=== PATIENT | female | born 1940 | race Caucasian/White ===

== ENCOUNTER 2021-07-15 10:28 | Inpatient (IN) ==
[2021-07-15 10:45] LABS: BORDETELLA PARAPERTUSSIS (PCR) NOT DETECTED (NOT DETECT); BORDETELLA PERTUSSIS (PCR) NOT DETECTED (NOT DETECT); CHLAMYDIA PNEUMONIAE (PCR) NOT DETECTED (NOT DETECT); CORONAVIRUS 229E (PCR) NOT DETECTED (NOT DETECT); CORONAVIRUS HKU1 (PCR) NOT DETECTED (NOT DETECT); CORONAVIRUS NL63 (PCR) NOT DETECTED (NOT DETECT); CORONAVIRUS OC43 (PCR) NOT DETECTED (NOT DETECT); HUMAN METAPNEUMOVIRUS (PCR) NOT DETECTED (NOT DETECT); HUMAN RHINOVIRUS/ENTEROV (PCR) NOT DETECTED (NOT DETECT); INFLUENZA B (PCR) NOT DETECTED (NOT DETECT); MYCOPLASMA PNEUMONIAE (PCR) NOT DETECTED (NOT DETECT); PARAINFLUENZA VIRUS 1 (PCR) NOT DETECTED (NOT DETECT); PARAINFLUENZA VIRUS 2 (PCR) NOT DETECTED (NOT DETECT); PARAINFLUENZA VIRUS 3 (PCR) NOT DETECTED (NOT DETECT); PARAINFLUENZA VIRUS 4 (PCR) NOT DETECTED (NOT DETECT); RESPIRATORY SYNCYTIAL V (PCR) NOT DETECTED (NOT DETECT); SARS_COV_2 (PCR) NOT DETECTED (NOT DETECT)
[2021-07-15 11:36] LABS: ADENOVIRUS (PCR) NOT DETECTED (NOT DETECT)
[2021-07-15 13:07] VITALS: BMI 24.0
[2021-07-15] MEDS ORDERED: NITROSTAT SL PRN (13:36)
[2021-07-15] MEDS ORDERED: ATROPINE SULFATE PFS IVP PRN (13:36)
[2021-07-15] MEDS ORDERED: TYLENOL PO PRN (13:36)
[2021-07-15 13:57] LABS: BASOPHILS % (AUTO) 0.4 % (0.0-3.0); EOSINOPHILS # (AUTO) 0.2 K/ul (0.0-0.7); EOSINOPHILS % (AUTO) 2.2 % (0.0-7.0); HEMATOCRIT 33.8 % (37.0-47.0); HEMOGLOBIN 11.9 g/dl (12.0-16.0); IMMATURE GRANULOCYTE % (AUTO) 0.3 % (0.0-5.0); LYMPHOCYTES # (AUTO) 2.2 K/uL (0.60-3.4); LYMPHOCYTES % (AUTO) 31.3 (10.0-50.0); MEAN CORPUSCULAR HEMOGLOBIN 33.6 pg (27.0-31.0); MEAN CORPUSCULAR HGB CONC 35.2 (31.8-35.4); MEAN CORPUSCULAR VOLUME 95.5 fl (81.0-99.0); MONOCYTES # (AUTO) 0.4 K/uL (0.4-2.0); MONOCYTES % (AUTO) 6.1 (0-10); NEUTROPHILS # (AUTO) 4.3 K/ul (2.0-6.9); NEUTROPHILS % (AUTO) 59.7 % (42.2-75.2); PLATELET COUNT 171 10^3/uL (140-440); RDW COEFFICIENT OF VARIATION 11.3 % (11.6-14.8); RED BLOOD COUNT 3.54 10^6/ul (4.20-5.40); WHITE BLOOD COUNT 7.16 K/ul (4.6-10.2)
[2021-07-15 14:13] LABS: BILIRUBIN,URINE Negative (NEGATIVE); CLARITY,URINE Clear (CLEAR); COLOR,URINE Yellow (YELLOW); GLUCOSE, URINE (UA) 1+ (NEGATIVE); KETONES,URINE Negative (NEGATIVE); LEUKOCYTE ESTERASE ,URINE 1+ (NEGATIVE); NITRITE,URINE Negative (NEGATIVE); PH,URINE 5.5 (5-9); PROTEIN,URINE Negative (NEGATIVE); URINE, BLOOD Negative (NEGATIVE); UROBILINOGEN,URINE 0.2 (0.2)
[2021-07-15 14:13] LABS: ALANINE AMINOTRANSFERASE 57.3 U/L (0-35); ALBUMIN 4.16 g/dL (3.5-5.0); ASPARTATE AMINO TRANSFERASE 57.5 U/L (14-36); BILIRUBIN,TOTAL 0.37 mg/dL (0.2-1.3); CALCIUM 8.67 mg/dL (8.4-10.2); CARBON DIOXIDE 26.3 mmol/L (22-30.0); CHLORIDE 94.9 mmol/L (98-107); CREATINE KINASE 85.4 U/L (30-135); CREATININE 1.06 mg/dL (0.60-1.30); GLUCOSE 303.6 mg/dL (74-106); POTASSIUM 3.48 mmol/L (3.5-5.1); SODIUM 132.7 mmol/L (134.5-145); TOTAL PROTEIN 7.26 g/dL (6.3-8.2)
[2021-07-15 14:25] LABS: TROPONIN I < 0.012 ng/ml (0.0000-0.120)
[2021-07-15 14:28] LABS: URINE WBC, MICROSCOPIC 20-30 (0-2)
[2021-07-15 14:29] LABS: BACTERIA,URINE 3+ (NOT PRESENT)
--- NOTE | 2021-07-15 15:24 | US ---
EXAM: Carotid duplex ultrasound. HISTORY: Dizziness and forgetfulness. COMPARISON: None. FINDINGS: Evaluation of the right and left carotid and vertebral arteries was performed using navarro scale, color doppler, and spectral doppler. Right cervical carotid: Mild atherosclerotic plaque in the right internal carotid artery. Peak systo lic velocity right ICA 62.5cm/s. Velocity right CCA 85.9cm/s. Velocity ratio right ICA:CCA 0.7. Left cervical carotid: Mild atherosclerotic plaque in the left internal carotid artery. Peak systoli c velocity left ICA 73.4cm/s. Velocity left CCA 62.4cm/s. Velocity ratio left ICA:CCA 1.2. Vertebral arteries: Normal, antegrade flow. IMPRESSION: Mild atherosclerosis. No evidence of significant carotid stenosis. Normal flow in the right and left vertebral arteries.
--- NOTE | 2021-07-15 15:54 | DI ---
EXAM: Frontal view of the chest. HISTORY: Shortness of breath. COMPARISON: None. FINDINGS: Calcific atherosclerosis of the aorta. Normal heart size. No acute consolidation. Scattered calcified granulomas. No visible effusion or pneumothorax. No acute osseous abnormality. IMPRESSION: 1. No acute abnormality. 2. Calcific atherosclerosis.
[2021-07-15] MEDS: ROCEPHIN 1 GM/50 ML D5W 1 GM/50 ML BAG IV SCH (16:07)
--- NOTE | 2021-07-15 16:10 | MRI ---
EXAM: MRI of the brain with without contrast HISTORY: Dementia TECHNIQUE: Multiplanar imaging of the brain was performed using T1, T2, inversion recovery, diffusio n, T2 gradient and postcontrast T1W sequences. Comparison none. FINDINGS: There is no restricted diffusion. The lateral ventricles and cortical sulci are mildly pr ominent secondary to cerebral atrophy.. The basal cisterns are patent. Normal flow voids are identi fied within the basal cisterns. The seventh and eighth cranial nerve complexes are normal. Normal f low signal is identified within the dural venous sinuses. Numerous T2 high signal foci are seen thro ughout the supratentorial white matter and within the martín. No abnormal enhancement is identified wi thin the brain on postcontrast images. The craniocervical junction and midline structures are normal. The soft tissues of the skull base an d nasopharynx appear normal. The paranasal sinuses and mastoid air cells are clear. The extracrania l soft tissues are normal. IMPRESSION: There is no acute cerebral infarction. At least moderate chronic small vessel ischemic changes seen throughout the supratentorial white daxa er and brainstem at the level of martín. Mild cerebral atrophy.
[2021-07-15] MEDS ORDERED: VANCOMYCIN 1 GRAM/200 ML PREMIX 1 GM/200 ML BAG IV SCH (21:00)
[2021-07-15] MEDS ORDERED: PRIMIDONE 50 MG PO SCH (21:00)
[2021-07-15] MEDS: DITROPAN PO SCH (21:04)
[2021-07-15] MEDS: MYSOLINE PO SCH (21:06)
[2021-07-15] MEDS: LANTUS SUBCUT SCH (21:07)
[2021-07-15 21:36] LABS: CREATINE KINASE 72.8 U/L (30-135)
[2021-07-15 21:50] LABS: TROPONIN I < 0.012 ng/ml (0.0000-0.120)
[2021-07-16] MEDS: PROTONIX PO SCH (05:31)
[2021-07-16 05:32] LABS: BASOPHILS % (AUTO) 0.4 % (0.0-3.0); EOSINOPHILS # (AUTO) 0.2 K/ul (0.0-0.7); EOSINOPHILS % (AUTO) 2.9 % (0.0-7.0); HEMATOCRIT 32.7 % (37.0-47.0); HEMOGLOBIN 11.3 g/dl (12.0-16.0); IMMATURE GRANULOCYTE % (AUTO) 0.3 % (0.0-5.0); LYMPHOCYTES # (AUTO) 2.3 K/uL (0.60-3.4); LYMPHOCYTES % (AUTO) 30.2 (10.0-50.0); MEAN CORPUSCULAR HEMOGLOBIN 33.1 pg (27.0-31.0); MEAN CORPUSCULAR HGB CONC 34.6 (31.8-35.4); MEAN CORPUSCULAR VOLUME 95.9 fl (81.0-99.0); MONOCYTES # (AUTO) 0.6 K/uL (0.4-2.0); MONOCYTES % (AUTO) 7.2 (0-10); NEUTROPHILS # (AUTO) 4.6 K/ul (2.0-6.9); PLATELET COUNT 168 10^3/uL (140-440); RDW COEFFICIENT OF VARIATION 11.4 % (11.6-14.8); RED BLOOD COUNT 3.41 10^6/ul (4.20-5.40); WHITE BLOOD COUNT 7.69 K/ul (4.6-10.2)
[2021-07-16 05:52] LABS: ALANINE AMINOTRANSFERASE 48.1 U/L (0-35); ALBUMIN 3.72 g/dL (3.5-5.0); ALKALINE PHOSPHATASE 96.6 U/L (53-141); ASPARTATE AMINO TRANSFERASE 44.2 U/L (14-36); BILIRUBIN,TOTAL 0.24 mg/dL (0.2-1.3); BLOOD UREA NITROGEN 20.1 mg/dL (7-17); CALCIUM 8.55 mg/dL (8.4-10.2); CARBON DIOXIDE 24.1 mmol/L (22-30.0); CHLORIDE 99.4 mmol/L (98-107); CREATININE 1.11 mg/dL (0.60-1.30); GLUCOSE 337.1 mg/dL (74-106); POTASSIUM 3.25 mmol/L (3.5-5.1); TOTAL PROTEIN 6.68 g/dL (6.3-8.2)
[2021-07-16] MEDS: ROCEPHIN 1 GM/50 ML D5W 1 GM/50 ML BAG IV SCH (08:07)
[2021-07-16] MEDS: MYSOLINE PO SCH ×3 (08:55→20:25)
[2021-07-16] MEDS ORDERED: MULTIVITAMIN MIN IRON FA VIT K 18 MG PO SCH (09:00)
[2021-07-16] MEDS ORDERED: NON-FORMULARY MEDICATION (Vitamin B Complex Capsule) PO SCH (09:00)
[2021-07-16] MEDS ORDERED: IRON PO SCH (09:00)
[2021-07-16] MEDS ORDERED: NON-FORMULARY MEDICATION (Ferrous Sulfate [Iron] 325 mg (65 mg iron) Tablet) PO SCH (09:00)
[2021-07-16] MEDS ORDERED: [UNRECOGNIZED DRUG - OTHER] PO SCH (09:00)
[2021-07-16] MEDS: BALANCED B-100 PO SCH (09:08)
[2021-07-16] MEDS: LIPITOR PO SCH (09:08)
[2021-07-16] MEDS: JANUVIA PO SCH (09:08)
[2021-07-16] MEDS: FERROUS SULFATE PO SCH (09:08)
[2021-07-16] MEDS: MULTIVITAMIN TABLET PO SCH (09:08)
[2021-07-16] MEDS: NON-FORMULARY MEDICATION (Calcium-Magnesium-Zinc Tablet) PO SCH (09:09)
[2021-07-16] MEDS: INDAPAMIDE 1.25 MG PO SCH (09:09)
[2021-07-16] MEDS: NON-FORMULARY MEDICATION (Vit C,E-Zn-Coppr-Lutein-Zeaxan [Preservision Areds-2] 250-90-40- PO SCH (09:10)
[2021-07-16] MEDS: LANTUS SUBCUT SCH ×2 (09:11→20:26)
[2021-07-16] MEDS: HUMULIN R SUBCUT PRN ×3 (11:10→20:25)
[2021-07-16] MEDS ORDERED: LANTUS SUBCUT ONE (12:01)
--- NOTE | 2021-07-16 14:19 | HP ---
DATE OF SERVICE: 07/15/21 REASON FOR HOSPITALIZATION/HISTORY OF PRESENT ILLNESS: The patient walked in on followup of uncontrolled diabetes mellitus type II. Glucose >400 daily greater than 7 days. No fever. No chills. History of increase glucose with insulin usage few years ago at [facility]. U/A today was abnormal. Sudden out of control. PAST MEDICAL HISTORY: Familial tremors Diabetes Mellitus type II Dyslipidemia DJD Fatty liver PAST SURGICAL HISTORY: Partial hysterectomy Carpal tunnel, right hand Eyelid Thoracic outlet syndrome, left REVIEW OF SYSTEMS: CONSTITUTIONAL: No fever, Fatigue. HEENT: No sinus drainage, no sore throat. Shaky. RESPIRATORY: No cough, no congestion. CARDIOVASCULAR: No atypical chest pain for coronary artery disease. No angina, CHF symptoms, palpitations or shortness of breath. GASTROINTESTINAL: No melena or abdominal pain. No GERD. GENITOURINARY: No hematuria, no prostatism, no polyuria. STUDENT SUPPORT ADVISOR: No blackout, no dizziness, no headache, no double vision. MUSCULOSKELETAL: No osteoarthritis pain, no joint swelling. ENDOCRINE: Weight loss 5 pounds in 4 weeks. , no weight gain. SKIN: Not dry, no rash. PSYCHIATRIC: Not anxious, no depression, no suicidal thoughts, no homicidal thoughts. Confused. SOCIAL HISTORY: Marital Status: . Twins one . Alcohol Usage: No. Tobacco Usage: No. FAMILY HISTORY: Father emphysema, colon cancer and Parkinson Mother DM II, Cancer of uterus, Parkinson's MEDICATIONS: Basaglar 15 units HS Iron 325mg Lipitor 40mg daily Norvasc 5mg daily Protonix 40mg daily Januvia 100mg daily Primidone 50mg two tablet TID Indapamide 1.25mg Q AM Lasix 20mg twice a week Ditropan 5mg HS Multivitamin one daily Calcium, magnesium, zinc daily B-complex daily Prednisone daily ALLERGIES: Lidocaine PHYSICAL EXAMINATION: V/S: Pulse 72, blood pressure 103/56, temperature 98.1, oxygen saturation 97%. BMI 24.2, height 5'7, weight 154.4. GENERAL APPEARANCE: Oriented times three. HEENT: Normal. NECK: No JVP, no bruits. RESPIRATORY: Lungs are clear. CARDIOVASCULAR: S1, S2, no S3, no murmur. No cyanosis, clubbing. No ascites. GI/ABDOMEN: No tenderness. Bowel sounds are active. EXTREMITIES: edema, pulses +1, equal. STUDENT SUPPORT ADVISOR: Deep tendon reflexes, sensory, motor and gait all normal. RECTAL/PELVIC/PROSTATE: . ASSESSMENT: 1. Uncontrolled diabetes mellitus type II 2. UTI 3. Fatigue/tired 4. Forgetful/Dementia. Functional 5. Essential tremors 6. Status post sepsis e-coli 7. Right obstructive pyelonephritis with sepsis 8. Obstructive right ureteral calculus with stent-Milton 9. Status post respiratory failure with intubation 10.Anemia- MBS? - Dr. 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 21.Anemia PLAN: 1. The patient to be tested in drive thru. 2. Routine telemetry orders 3. CBC and CMP now and daily 4. U/A with culture 5. Rocephin 1 gram IV daily times 7 days 6. Increase Basaglar 15 units BID 7. Chest x-ray 8. Regular diet 9. Continue home medications 10.MRI brain with and without 11.Bilateral carotid 12.Blood cultures times two TIME SPENT: More than 70 minutes. MTDD
[2021-07-16] MEDS: K-DUR PO SCH (17:57)
[2021-07-16] MEDS: DITROPAN PO SCH (20:24)
[2021-07-16] MEDS ORDERED: VANCOMYCIN 1 GRAM/200 ML PREMIX 1 GM/200 ML BAG IV SCH (21:00)
[2021-07-17 05:41] LABS: BASOPHILS # (AUTO) 0.1 K/uL (0-0.2); BASOPHILS % (AUTO) 0.6 % (0.0-3.0); EOSINOPHILS # (AUTO) 0.3 K/ul (0.0-0.7); EOSINOPHILS % (AUTO) 3.8 % (0.0-7.0); IMMATURE GRANULOCYTE % (AUTO) 0.1 % (0.0-5.0); LYMPHOCYTES # (AUTO) 2.7 K/uL (0.60-3.4); LYMPHOCYTES % (AUTO) 34.8 (10.0-50.0); MEAN CORPUSCULAR HEMOGLOBIN 34.1 pg (27.0-31.0); MEAN CORPUSCULAR HGB CONC 35.5 (31.8-35.4); MONOCYTES # (AUTO) 0.6 K/uL (0.4-2.0); MONOCYTES % (AUTO) 7.3 (0-10); NEUTROPHILS # (AUTO) 4.2 K/ul (2.0-6.9); NEUTROPHILS % (AUTO) 53.4 % (42.2-75.2); PLATELET COUNT 165 10^3/uL (140-440); RDW COEFFICIENT OF VARIATION 11.4 % (11.6-14.8); RED BLOOD COUNT 3.23 10^6/ul (4.20-5.40); WHITE BLOOD COUNT 7.84 K/ul (4.6-10.2)
[2021-07-17] MEDS: PROTONIX PO SCH (05:42)
[2021-07-17 05:54] LABS: ALANINE AMINOTRANSFERASE 48.2 U/L (0-35); ALBUMIN 3.7 g/dL (3.5-5.0); ALKALINE PHOSPHATASE 90.6 U/L (53-141); ASPARTATE AMINO TRANSFERASE 39.8 U/L (14-36); BILIRUBIN,TOTAL 0.29 mg/dL (0.2-1.3); BLOOD UREA NITROGEN 21.5 mg/dL (7-17); CALCIUM 8.82 mg/dL (8.4-10.2); CARBON DIOXIDE 25.9 mmol/L (22-30.0); CHLORIDE 100.4 mmol/L (98-107); CREATININE 1.24 mg/dL (0.60-1.30); GLUCOSE 189.3 mg/dL (74-106); POTASSIUM 3.56 mmol/L (3.5-5.1); TOTAL PROTEIN 6.68 g/dL (6.3-8.2)
[2021-07-17] MEDS: HUMULIN R SUBCUT PRN ×4 (06:12→20:36)
[2021-07-17] MEDS: ROCEPHIN 1 GM/50 ML D5W 1 GM/50 ML BAG IV SCH (08:50)
[2021-07-17] MEDS: MYSOLINE PO SCH ×3 (08:55→20:31)
[2021-07-17] MEDS: INDAPAMIDE 1.25 MG PO SCH (08:57)
[2021-07-17] MEDS: LIPITOR PO SCH (08:59)
[2021-07-17] MEDS: FERROUS SULFATE PO SCH (08:59)
[2021-07-17] MEDS: JANUVIA PO SCH (08:59)
[2021-07-17] MEDS: BALANCED B-100 PO SCH (08:59)
[2021-07-17] MEDS: MULTIVITAMIN TABLET PO SCH (09:00)
[2021-07-17] MEDS: K-DUR PO SCH ×3 (09:00→17:53)
[2021-07-17] MEDS: NON-FORMULARY MEDICATION (Calcium-Magnesium-Zinc Tablet) PO SCH (09:01)
[2021-07-17] MEDS: NON-FORMULARY MEDICATION (Vit C,E-Zn-Coppr-Lutein-Zeaxan [Preservision Areds-2] 250-90-40- PO SCH (09:02)
[2021-07-17] MEDS: LANTUS SUBCUT SCH ×2 (09:08→20:33)
--- NOTE | 2021-07-17 09:24 | PCM.PROG ---
Attending Provider: ATTENDING PROVIDER: Dr. DANIELLA HERNANDEZ This patient is seen with Anh Good, Nurse Practitioner. DATE OF SERVICE: 07/17/21 SUBJECTIVE: This 81 year old /WHITE F was hospitalized 07/15/21. Sugars slightly improved. U/A was positive for Klebsiella sensitive to Rocephin. She has been afebrile. Yesterday increased Lantus. REVIEW OF SYSTEMS: CONSTITUTIONAL: No night sweats. No fatigue, malaise, lethargy. No fever or chills. Weakness. HEENT: Eyes: No visual changes. No eye pain. No eye discharge. ENT: No runny nose. No epistaxis. No sinus pain. No odynophagia. No congestion. RESPIRATORY: No cough, no congestion. No hemoptysis. No shortness of breath. CARDIOVASCULAR: No angina symptoms. No CHF symptoms. No atypical chest pain for CAD. No palpitations. No orthopnea.. GASTROINTESTINAL: No abdominal pain. No nausea or vomiting. No diarrhea or c onstipation. No hematemesis. No hematochezia. GENITOURINARY: No urgency. No frequency. No dysuria. No hematuria. No obstructive symptoms. No discharge. No pain. No significant abnormal bleeding. MUSCULOSKELETAL: No musculoskeletal pain; no joint swelling. NEUROLOGICAL: Awake, alert, oriented to time, place and person. No headache. No neck pain. No syncope. No seizures. No dizziness. PSYCHIATRIC: Not anxious. No depression. No suicidal thoughts. No homicidal thoughts. SKIN: No rash. No lesions. No wounds. ENDOCRINE: No unexplained weight loss. No weight gain. Hypoglycemia. HEMATOLOGIC/LYMPHATIC: No anemia. No purpura. No petechiae. No prolonged or excessive bleeding. No palpable lymph nodes. PHYSICAL EXAMINATION: GENERAL: The patient is awake, alert and oriented, lying in bed in no distress. VITAL SIGNS: Temperature 97.5 F, Pulse 56, Respiratory Rate 18, BP 101/55, Pulse Ox 98% HEENT: Head normocephalic, atraumatic. Eyes: Extraocular muscles are intact. Pupils are equal, round and reactive to light and accommodation. Ears: No lesions. Nose appeared normal. Throat: No exudate or erythema. NECK: Supple. No JVD, no carotid bruit. No lymphadenopathy or thyromegaly. LUNGS: Diminished breath sounds. Clear to auscultation. Percussion note normal. Chest symmetrical. HEART: S1, S2, no S3. No murmurs. No cyanosis or clubbing. No ascites. Pulse s: Dorsalis pedis and posterior tibial pulses +1 to +2 both sides. ABDOMEN: Soft. Non-tender. Bowel sounds active. No CVA tenderness. No mass felt. EXTREMITIES: No edema. Full range of motion of all extremities, equal. NEUROLOGIC: No focal deficit. Cranial nerves II through XII are grossly intact. No headache. No double vision. SKIN: Not dry. Intact. Turgor-normal. LYMPHATIC: No palpable lymph nodes/no lymphedema. MUSCULOSKELETAL: Normal joints with no swelling. Muscle tone is normal. LAB REVIEW: 07/17/21 04:46 07/17/21 04:46 07/17/21 04:46: Sodium 136.0, Potassium 3.56, Chloride 100.4, Carbon Dioxide 25.9, Anion Gap 13.26, BUN 21.5 H, Creatinine 1.24, Estimated GFR (MDRD) 42.00, BUN/Creatinine Ratio 17.33, Glucose 189.3 H D, Calcium 8.82, Total Bilirubin 0.29, AST 39.8 H, ALT 48.2 H, Alkaline Phosphatase 90.6, Total Protein 6.68, Albumin 3.70, Globulin 2.98, Albumin/Globulin Ratio 1.24 07/17/21 04:46: WBC 7.84, RBC 3.23 L, Hgb 11.0 L, Hct 31.0 L, MCV 96.0, MCH 34.1 H, MCHC 35.5 H, RDW Coeff of Elva 11.4 L, Plt Count 165, Immature Gran % (Auto) 0.1, Neut % (Auto) 53.4, Lymph % (Auto) 34.8, [place] % (Auto) 7.3, Eos % (Auto) 3.8, Baso % (Auto) 0.6, Neut # (Auto) 4.2, Lymph # (Auto) 2.7, [place] # (Auto) 0.6, Eos # (Auto) 0.3, Baso # (Auto) 0.1, Immature Gran # (Auto) 0.0 ASSESSMENT: Please see below. 1. UTI positive Klebsiella 2. Uncontrolled diabetes mellitus type II 3. Generalized weakness. PLAN: 1. Continue IV antibiotics 2. Sliding scale for coverage along with Lantus. Plan and coordination of the patient's care discussed in the presence of Solar Site Assessment Specialist and nurse. SCRIBED BY: Abdiel PAK scribed while in presence of service performed by Dr. Hernandez/Anh Good APRN on 07/17/21 ([id number])
[2021-07-17] MEDS: DITROPAN PO SCH (20:31)
[2021-07-18 05:04] LABS: BASOPHILS % (AUTO) 0.4 % (0.0-3.0); EOSINOPHILS # (AUTO) 0.3 K/ul (0.0-0.7); EOSINOPHILS % (AUTO) 4.8 % (0.0-7.0); HEMATOCRIT 31.6 % (37.0-47.0); HEMOGLOBIN 10.7 g/dl (12.0-16.0); IMMATURE GRANULOCYTE % (AUTO) 0.1 % (0.0-5.0); LYMPHOCYTES # (AUTO) 2.7 K/uL (0.60-3.4); LYMPHOCYTES % (AUTO) 40.3 (10.0-50.0); MEAN CORPUSCULAR HEMOGLOBIN 33.2 pg (27.0-31.0); MEAN CORPUSCULAR HGB CONC 33.9 (31.8-35.4); MEAN CORPUSCULAR VOLUME 98.1 fl (81.0-99.0); MONOCYTES # (AUTO) 0.5 K/uL (0.4-2.0); MONOCYTES % (AUTO) 7.6 (0-10); NEUTROPHILS # (AUTO) 3.1 K/ul (2.0-6.9); NEUTROPHILS % (AUTO) 46.8 % (42.2-75.2); PLATELET COUNT 150 10^3/uL (140-440); RDW COEFFICIENT OF VARIATION 11.3 % (11.6-14.8); RED BLOOD COUNT 3.22 10^6/ul (4.20-5.40); WHITE BLOOD COUNT 6.68 K/ul (4.6-10.2)
[2021-07-18 05:18] LABS: ALANINE AMINOTRANSFERASE 44.5 U/L (0-35); ALBUMIN 3.66 g/dL (3.5-5.0); ALKALINE PHOSPHATASE 84.4 U/L (53-141); ASPARTATE AMINO TRANSFERASE 41.1 U/L (14-36); BILIRUBIN,TOTAL 0.23 mg/dL (0.2-1.3); BLOOD UREA NITROGEN 22.3 mg/dL (7-17); CALCIUM 8.74 mg/dL (8.4-10.2); CARBON DIOXIDE 25.8 mmol/L (22-30.0); CHLORIDE 104.2 mmol/L (98-107); CREATININE 1.04 mg/dL (0.60-1.30); GLUCOSE 174.8 mg/dL (74-106); POTASSIUM 4.37 mmol/L (3.5-5.1); SODIUM 136.7 mmol/L (134.5-145); TOTAL PROTEIN 6.5 g/dL (6.3-8.2)
[2021-07-18] MEDS: PROTONIX PO SCH (06:17)
[2021-07-18] MEDS: HUMULIN R SUBCUT PRN ×4 (06:17→20:26)
[2021-07-18] MEDS ORDERED: LASIX TAB PO SCH (06:30)
[2021-07-18] MEDS: ROCEPHIN 1 GM/50 ML D5W 1 GM/50 ML BAG IV SCH (09:00)
[2021-07-18] MEDS: NON-FORMULARY MEDICATION (Calcium-Magnesium-Zinc Tablet) PO SCH (09:00)
[2021-07-18] MEDS: NON-FORMULARY MEDICATION (Vit C,E-Zn-Coppr-Lutein-Zeaxan [Preservision Areds-2] 250-90-40- PO SCH (09:00)
[2021-07-18] MEDS: MULTIVITAMIN TABLET PO SCH (09:10)
[2021-07-18] MEDS: JANUVIA PO SCH (09:10)
[2021-07-18] MEDS: FERROUS SULFATE PO SCH (09:10)
[2021-07-18] MEDS: INDAPAMIDE 1.25 MG PO SCH (09:11)
[2021-07-18] MEDS: K-DUR PO SCH ×3 (09:11→17:30)
[2021-07-18] MEDS: BALANCED B-100 PO SCH (09:11)
[2021-07-18] MEDS: LIPITOR PO SCH (09:11)
[2021-07-18] MEDS: MYSOLINE PO SCH ×3 (09:13→20:28)
[2021-07-18] MEDS: LANTUS SUBCUT SCH ×2 (09:14→20:24)
[2021-07-18] MEDS: KEFLEX PO SCH ×3 (09:22→20:27)
--- NOTE | 2021-07-18 09:31 | PCM.PROG ---
Attending Provider: ATTENDING PROVIDER: Dr. DANIELLA HERNANDEZ DATE OF SERVICE: 07/18/21 SUBJECTIVE: This 81 year old /WHITE F was hospitalized 07/15/21 with uncontrolled diabetes mellitus and UTI. The patient was fatigued and weak. She is a little forgetful lately. The patient is going to have a MMSE. REVIEW OF SYSTEMS: CONSTITUTIONAL: No night sweats. No fatigue, malaise, lethargy. No fever or chills. HEENT: Eyes: No visual changes. No eye pain. No eye discharge. ENT: No runny nose. No epistaxis. No sinus pain. No odynophagia. No congestion. RESPIRATORY: No cough, no congestion. No hemoptysis. No shortness of breath. CARDIOVASCULAR: No angina symptoms. No CHF symptoms. No atypical chest pain for CAD. No palpitations. No orthopnea.. GASTROINTESTINAL: No abdominal pain. No nausea or vomiting. No diarrhea or constipation. No hematemesis. No hematochezia. GENITOURINARY: No urgency. No frequency. No dysuria. No hematuria. No obstructive symptoms. No discharge. No pain. No significant abnormal bleeding. MUSCULOSKELETAL: No musculoskeletal pain; no joint swelling. NEUROLOGICAL: Awake, alert, oriented to time, place and person. No headache. No neck pain. No syncope. No seizures. No dizziness. PSYCHIATRIC: Not anxious. No depression. No suicidal thoughts. No homicidal thoughts. SKIN: No rash. No lesions. No wounds. ENDOCRINE: No unexplained weight loss. No weight gain. HEMATOLOGIC/LYMPHATIC: No anemia. No purpura. No petechiae. No prolonged or excessive bleeding. No palpable lymph nodes. PHYSICAL EXAMINATION: GENERAL: The patient is awake, alert and oriented, lying/sitting in bed in no distress. VITAL SIGNS: Temperature 97.9 F, Pulse 58, Respiratory Rate 16, BP 118/65, Pulse Ox 98% HEENT: Head normocephalic, atraumatic. Eyes: Extraocular muscles are intact. Pupils are equal, round and reactive to light and accommodation. Ears: No lesions. Nose appeared normal. Throat: No exudate or erythema. NECK: Supple. No JVD, no carotid bruit. No lymphadenopathy or thyromegaly. LUNGS: Clear to auscultation. Percussion note normal. Chest symmetrical. HEART: S1, S2, no S3. No murmurs. No cyanosis or clubbing. No ascites. Pulses: Dorsalis pedis and posterior tibial pulses +1 to +2 both sides. ABDOMEN: Soft. Non-tender. Bowel sounds active. No CVA tenderness. No mass felt. EXTREMITIES: No edema. Full range of motion of all extremities, equal. NEUROLOGIC: No focal deficit. Cranial nerves II through XII are grossly intact. No headache, no double vision or headache. SKIN: Warm and dry. Intact. Turgor-normal. LYMPHATIC: No palpable lymph nodes/no lymphedema. MUSCULOSKELETAL: Normal joints with no swelling. Muscle tone is normal. LAB REVIEW: 07/18/21 04:55 07/18/21 04:55 07/18/21 04:55: Sodium 136.7, Potassium 4.37, Chloride 104.2, Carbon Dioxide 25.8, Anion Gap 11.07, BUN 22.3 H, Creatinine 1.04, Estimated GFR (MDRD) 51.00, BUN/Creatinine Ratio 21.44, Glucose 174.8 H, Calcium 8.74, Total Bilirubin 0.23, AST 41.1 H, ALT 44.5 H, Alkaline Phosphatase 84.4, Total Protein 6.50, Albumin 3.66, Globulin 2.84, Albumin/Globulin Ratio 1.28 07/18/21 04:55: WBC 6.68, RBC 3.22 L, Hgb 10.7 L, Hct 31.6 L, MCV 98.1, MCH 33.2 H, MCHC 33.9, RDW Coeff of Elva 11.3 L, Plt Count 150, Immature Gran % (Auto) 0.1, Neut % (Auto) 46.8, Lymph % (Auto) 40.3, [place] % (Auto) 7.6, Eos % (Auto) 4.8, Baso % (Auto) 0.4, Neut # (Auto) 3.1, Lymph # (Auto) 2.7, [place] # (Auto) 0.5, Eos # (Auto) 0.3, Baso # (Auto) 0.0, Immature Gran # (Auto) 0.0 ASSESSMENT: Please see below. 1. Diabetes Mellitus seems to be under control. Fasting sugar this morning is 174, creatinine 1 and BUN 22. 2. UTI seems to be resolving. PLAN: 1. Diabetic education was carried out 2. Carotid scan done 3. Echo to be done 4. MMSE to be done CONDITION: Stable. Plan and coordination of the patient's care discussed in the presence of Lap Layer and nurse. SCRIBED BY: Abdiel PAK scribed while in presence of service performed by Dr. DANIELLA HERNANDEZ on 07/18/21 ([id number])
--- NOTE | 2021-07-18 11:52 | PN ---
DATE OF SERVICE: 07/17/21 SUBJECTIVE: The patient was seen and examined with the Nurse Practitioner. The patient's diabetes mellitus seems to be coming under control. She is feeling better and looking better. Dehydration status has improved. Education about insulin therapy, hypoglycemia carried out in detail. She has an understanding the mechanics of it but in any case she has been told so many times about a lot of things. She is not able to buy Januvia she depends on samples. Complications of diabetes discussed. TIME SPENT: More than 30 minutes. Plan and coordination of the patient's care discussed in the presence of nurse. DARI
[2021-07-18] MEDS: DITROPAN PO SCH (20:27)
[2021-07-19 05:15] LABS: BASOPHILS % (AUTO) 0.6 % (0.0-3.0); EOSINOPHILS # (AUTO) 0.3 K/ul (0.0-0.7); EOSINOPHILS % (AUTO) 4.2 % (0.0-7.0); HEMATOCRIT 33.5 % (37.0-47.0); HEMOGLOBIN 11.4 g/dl (12.0-16.0); IMMATURE GRANULOCYTE % (AUTO) 0.3 % (0.0-5.0); LYMPHOCYTES # (AUTO) 2.8 K/uL (0.60-3.4); LYMPHOCYTES % (AUTO) 40.2 (10.0-50.0); MEAN CORPUSCULAR HEMOGLOBIN 33.2 pg (27.0-31.0); MEAN CORPUSCULAR VOLUME 97.7 fl (81.0-99.0); MONOCYTES # (AUTO) 0.5 K/uL (0.4-2.0); NEUTROPHILS # (AUTO) 3.3 K/ul (2.0-6.9); NEUTROPHILS % (AUTO) 47.7 % (42.2-75.2); PLATELET COUNT 171 10^3/uL (140-440); RDW COEFFICIENT OF VARIATION 11.5 % (11.6-14.8); RED BLOOD COUNT 3.43 10^6/ul (4.20-5.40); WHITE BLOOD COUNT 6.86 K/ul (4.6-10.2)
[2021-07-19 05:23] VITALS: BP 116/67; TEMP 98.1
[2021-07-19 05:28] LABS: ALANINE AMINOTRANSFERASE 46.1 U/L (0-35); ALBUMIN 3.74 g/dL (3.5-5.0); ALKALINE PHOSPHATASE 82.4 U/L (53-141); ASPARTATE AMINO TRANSFERASE 44.7 U/L (14-36); BILIRUBIN,TOTAL 0.28 mg/dL (0.2-1.3); BLOOD UREA NITROGEN 22.3 mg/dL (7-17); CALCIUM 9.12 mg/dL (8.4-10.2); CARBON DIOXIDE 28.2 mmol/L (22-30.0); CHLORIDE 103.6 mmol/L (98-107); CREATININE 1.05 mg/dL (0.60-1.30); GLUCOSE 80.8 mg/dL (74-106); POTASSIUM 4.24 mmol/L (3.5-5.1); SODIUM 138.1 mmol/L (134.5-145); TOTAL PROTEIN 6.63 g/dL (6.3-8.2)
[2021-07-19] MEDS: PROTONIX PO SCH (05:49)
[2021-07-19] MEDS: KEFLEX PO SCH (05:49)
[2021-07-19] MEDS: BALANCED B-100 PO SCH (09:03)
[2021-07-19] MEDS: JANUVIA PO SCH (09:03)
[2021-07-19] MEDS: FERROUS SULFATE PO SCH (09:04)
[2021-07-19] MEDS: MULTIVITAMIN TABLET PO SCH (09:04)
[2021-07-19] MEDS: K-DUR PO SCH ×2 (09:04→11:10)
[2021-07-19] MEDS: LIPITOR PO SCH (09:04)
[2021-07-19] MEDS: NON-FORMULARY MEDICATION (Calcium-Magnesium-Zinc Tablet) PO SCH (09:05)
[2021-07-19] MEDS: MYSOLINE PO SCH ×2 (09:05→11:10)
[2021-07-19] MEDS: INDAPAMIDE 1.25 MG PO SCH (09:07)
[2021-07-19] MEDS: NON-FORMULARY MEDICATION (Vit C,E-Zn-Coppr-Lutein-Zeaxan [Preservision Areds-2] 250-90-40- PO SCH (09:10)
[2021-07-19] MEDS: LANTUS SUBCUT SCH (11:11)
[2021-07-19] MEDS: HUMULIN R SUBCUT PRN (11:12)
--- NOTE | 2021-07-21 11:23 | ECHO2D ---
Date of Exam: 07/19/2021 Ordering Physician: DR. DANIELLA HERNANDEZ Room #: 102 Reason for Echo: LEG EDEMA, SOB, DM2 M-Mode Normal Adult Results LV Dimensions Normal Adult Results AoV Opening excursions >1.6 >1.6 LVEDD-base- 3.5-5.8 4.0 Ao root dimensions 2.0-3.7 2.8 LVESD-base- 3.1-4.6 L. Atrium dimensions 1.9-3.8 3.9 Post. Wall thickness 0.8-1.1 1.0 IV septum (thickness) 0.7-1.2 1.2 Post. Wall excursion 0.72-1.3 NORMAL Septal motion NORMAL Systolic motion R. Ventricular cavity 1.5-2.0 NORMAL LVEF 60% 65% Paradoxical septal wall motion NORMAL 2-D : 2-D M Mode Echocardiogram was performed using apical four chamber and left parasternal long and short axis views. Mitral, tricuspid and aortic valves appear to be normal. Contractility of the left ventricle seems to be normal, so is the cavity size. Left atrial cavity size and aortic root appear to be normal. There is no pericardial effusion. There is no thrombus noted in the left ventricle or left atrial cavity. M-MODE: MV: NORMAL AV: NORMAL TV: NORMAL PV: CHAMBER SIZE: NORMAL WALL MOTION: NORMAL PERICARDIUM: NORMAL INTERPRETATION: 1. NORMAL 2 "D" "M" MODE ECHO MTDD
--- NOTE | 2021-07-22 14:52 | PN ---
ADMISSION DAY: LEVEL 5 REST OF THE DAYS: Intermediate FINAL DAY: D as in discharge MTDD
--- NOTE | 2021-07-23 09:39 | DS ---
DATE OF SERVICE: 07/19/21 FINAL DIAGNOSIS: 1. Uncontrolled diabetes mellitus 2. UTI Klebsiella pneumoniae 3. History of UTI with stent placement. 4. History of septicemia 5. Chronic anemia 6. Dyslipidemia 7. Hypertension 8. Tremor disorder with tremors essential. DISCHARGE INSTRUCTIONS: Discharge home. Continue all the medications as before. Come back on morning on followup. MEDICATIONS AT DISCHARGE: Calcium -magnesium-zinc 1 tablet Po daily B complex 1 capsule PO daily Ditropan 5mg PO bedtime Indapamide 1.25mg PO daily Primidone 100mg PO 0800,1200 and 2100 Januvia 100mg PO daily Protonix 40mg PO daily Iron 325mg PO daily Lipitor 40mg Po daily Preser vision AREDS-2 1 tablet PO daily Adults Multivitamin one tablet PO daily Lasix 20mg PO NEW PRESCRIPTIONS: KEFLEX 500MG TAKE ONE CAPSULE BY MOUTH THREE TIMES A DAY FOR 5 DAYS INCREASE INSULIN TO 20 UNITS TWICE A DAY DIET INSTRUCTIONS: Consistent Carb diet ACTIVITY: As tolerated HOSPITAL COURSE: 81 year old white female was feeling fatigued and tired, worn out. Blood sugars were running in 400s. She had UTI which was treated with Rocephin and then Keflex. She grew Klebsiella that was sensitive to cephalosporins. She was continued on Basaglar, the dose was increased to 25units and the later one dropped to 20units at the time of discharge because the blood sugar the morning of discharged was noted to be 80. The patient is feeling a lot better. She is looking better. Her hydration status has improved. She was advised to drink a lot of fluids. Echocardiogram that was done this morning showed normal LV contractility, normal valvular structures. She declined any stress echo. She is high risk for coronary artery disease because of her multiple coronary artery disease risk factor but she doesn't have any symptoms. Also advised to have colonoscopy for chronic anemia, she declined. She was advised regular mammograms. CONDITION: Stable. TIME SPENT: More than 60 minutes. [facility]
--- NOTE | 2021-07-23 09:45 | PN ---
DATE OF SERVICE: 07/19/21 DISCHARGE NOTE SUBJECTIVE: 81 year old white female hospitalized with uncontrolled diabetes and UTI. The patient's condition has improved. The is present in the room, she is feeling a lot better. REVIEW OF SYSTEMS: CONSTITUTIONAL: No night sweats. No fatigue, malaise, lethargy. No fever or chills. HEENT: Eyes: No visual changes. No eye pain. No eye discharge. ENT: No runny nose. No epistaxis. No sinus pain. No sore throat. No odynophagia. No congestion. RESPIRATORY: No cough, no congestion. No hemoptysis. No shortness of breath. CARDIOVASCULAR: No angina symptoms. No CHF symptoms. No atypical chest pain for CAD. No palpitations. No PND. No orthopnea. GASTROINTESTINAL: No abdominal pain. No nausea or vomiting. No diarrhea or constipation. No hematemesis. No hematochezia. GENITOURINARY: No urgency. No frequency. No dysuria. No hematuria. No obstructive symptoms. No discharge. No pain. No significant abnormal bleeding. MUSCULOSKELETAL: No musculoskeletal pain; no joint swelling. NEUROLOGICAL: No headache. No neck pain. No syncope. No seizures. No dizziness. PSYCHIATRIC: Not anxious. No depression. No suicidal thoughts. No homicidal thoughts. SKIN: No rash. No lesions. No wounds. ENDOCRINE: No unexplained weight loss. No weight gain. HEMATOLOGIC/LYMPHATIC: No anemia. No purpura. No petechiae. No prolonged or excessive bleeding. No palpable lymph nodes. PHYSICAL EXAMINATION: VITAL SIGNS: Temperature 98.1, pulse 57, respiratory rate 18, blood pressure 116/67 and pulse ox 97% on room air. HEENT: Head normocephalic, atraumatic. Eyes: Extraocular muscles are intact. Pupils are equal, round and reactive to light and accommodation. Ears: No lesions. Nose appeared normal. Throat: No exudate or erythema. NECK: Supple. No JVD, no carotid bruit. No lymphadenopathy or thyromegaly. LUNGS: Decreased breath sounds but clear to auscultation. Percussion note normal. Chest symmetrical. HEART: S1, S2, no S3. No murmurs. No cyanosis or clubbing. No ascites. Pulses: Dorsalis pedis and posterior tibial pulses +1 to +2 bilaterally. ABDOMEN: Soft. Nontender. Bowel sounds active. No CVA tenderness. No mass felt. EXTREMITIES: No edema. Full range of motion of all extremities, equal. NEUROLOGIC: No focal deficit. Cranial nerves II through XII are grossly intact. No headache. No double vision. SKIN: Not dry. Intact. Turgor - normal. LYMPHATIC: No palpable lymph nodes/no lymphedema. MUSCULOSKELETAL: Normal joints with no swelling. Muscle tone is normal. LABS: Hgb 11.4, hct 33, WBC 6,800 normal differential, creatinine 1, BUN 22, potassium 4.2 ASSESSMENT: 1. Diabetes mellitus seems to be under control 2. UTI under control with Klebsiella pneumoniae PLAN: 1. Continue Basaglar, reduce to 20 units as the sugar was 80 this morning 2. Continue Keflex 3. Discharge home with followup appointment this coming , 4 days from now 4. Diet discussed with the patient. TIME SPENT: More than 30 minutes. Plan and coordination of the patient's care discussed in the presence of nurse. DARI
--- NOTE | 2021-07-24 13:26 | PN ---
DATE OF SERVICE: 07/16/21 SUBJECTIVE: 81 year old white female hospitalized with uncontrolled diabetes mellitus and UTI. The patient has been fatigued recently, last several months has been more forgetful. The patient is up and about and wants to walk. REVIEW OF SYSTEMS: CONSTITUTIONAL: No night sweats. No fatigue, malaise, lethargy. No fever or chills. HEENT: Eyes: No visual changes. No eye pain. No eye discharge. ENT: No runny nose. No epistaxis. No sinus pain. No sore throat. No odynophagia. No congestion. RESPIRATORY: No cough, no congestion. No hemoptysis. No shortness of breath. CARDIOVASCULAR: No angina symptoms. No CHF symptoms. No atypical chest pain for CAD. No palpitations. No PND. No orthopnea. GASTROINTESTINAL: No abdominal pain. No nausea or vomiting. No diarrhea or constipation. No hematemesis. No hematochezia. GENITOURINARY: No urgency. No frequency. No dysuria. No hematuria. No obstructive symptoms. No discharge. No pain. No significant abnormal bleeding. MUSCULOSKELETAL: No musculoskeletal pain; no joint swelling. NEUROLOGICAL: No headache. No neck pain. No syncope. No seizures. No dizziness. PSYCHIATRIC: Not anxious. No depression. No suicidal thoughts. No homicidal thoughts. SKIN: No rash. No lesions. No wounds. ENDOCRINE: No unexplained weight loss. No weight gain. HEMATOLOGIC/LYMPHATIC: No anemia. No purpura. No petechiae. No prolonged or excessive bleeding. No palpable lymph nodes. PHYSICAL EXAMINATION: VITAL SIGNS: Temperature 98.2, pulse 64, respiratory rate 18, blood pressure 109/63 and pulse ox 94%. HEENT: Head normocephalic, atraumatic. Eyes: Extraocular muscles are intact. Pupils are equal, round and reactive to light and accommodation. Ears: No lesions. Nose appeared normal. Throat: No exudate or erythema. NECK: Supple. No JVD, no carotid bruit. No lymphadenopathy or thyromegaly. LUNGS:Decreased breath sounds but Clear to auscultation. Percussion note normal. Chest symmetrical. HEART: S1, S2, no S3. No murmurs. No cyanosis or clubbing. No ascites. Pulses: Dorsalis pedis and posterior tibial pulses +1 to +2 bilaterally. ABDOMEN: Soft. Nontender. Bowel sounds active. No CVA tenderness. No mass felt. EXTREMITIES: No edema. Full range of motion of all extremities, equal. NEUROLOGIC: No focal deficit. Cranial nerves II through XII are grossly intact. No headache. No double vision. SKIN: Not dry. Intact. Turgor - normal. LYMPHATIC: No palpable lymph nodes/no lymphedema. MUSCULOSKELETAL: Normal joints with no swelling. Muscle tone is normal. LABS: Hgb 11.3, hct 32, WBC 7,600 normal differential, creatinine 1.1, BUN 20, potassium 3.2. ASSESSMENT: 1. Uncontrolled diabetes 2. Hypokalemia PLAN: 1. Cover with scale and we will increase Basaglar to 25 units BID 2. K-tab 20meq TID 3. The patient has gram negative rods so discontinue Vancomycin and continue Rocephin CONDITION: Stable. Diabetes and complications discussed. She has a hard time figuring out that why her blood sugar has gone up. I explained to her that it could be the UTI and also pancreas eventually stops working. Other people with diabetes II and they require insulin coverage. TIME SPENT: More than 45-50 minutes. Plan and coordination of the patient's care discussed in the presence of nurse. DARI
== END 2021-07-19 12:50 | disposition home or self-care (01) | DRG 638 ==
LOC: LAB 10:28 → MEDSURG A 11:56
PROVIDERS: ADMIT Internal Medicine; ATTEND Internal Medicine
DX: Z20.822 Contact with and (suspected) exposure to COVID-19; Z96.0 Presence of urogenital implants; E78.5 Hyperlipidemia, unspecified; Z79.4 Long term (current) use of insulin; I10 Essential (primary) hypertension; G25.0 Essential tremor; Z87.440 Personal history of urinary (tract) infections; B96.1 Klebsiella pneumoniae [K. pneumoniae] as the cause of diseases classified elsewhere; M62.81 Muscle weakness (generalized); Z51.81 Encounter for therapeutic drug level monitoring; D63.8 Anemia in other chronic diseases classified elsewhere; Z79.899 Other long term (current) drug therapy; E11.65 Type 2 diabetes mellitus with hyperglycemia; Z86.19 Personal history of other infectious and parasitic diseases; N39.0 Urinary tract infection, site not specified